=== PATIENT | female | born 1995 | race American Indian/Alaskan Native ===

== ENCOUNTER 2020-06-20 10:37 | Day surgery (SDC) | payer SELFPAY ==
--- NOTE | 2020-06-20 10:50 | Event Note ---
ED Screening Note ED Screening Note: 25-year-old F [place] female reports emergency department complaining of being 1 month ago however reports that her doctor was unable to find the baby since that time she is been having bleeding off and on which has increased over the last few days become more painful with cramping to the suprapubic area. No dysuria or vaginal discharge reported no fevers chills or sweats no palpitations no chest pain or shortness of breath no pelvic trauma reported. This initial assessment/diagnostic orders/clinical plan/treatment(s) is/are subject to change based on patients health status, clinical progression and re- assessment by fellow clinical providers in the ED. Further treatment and workup at subsequent clinical providers discretion. Patient/guardian urged not to elope from the ED as their condition may be serious if not clinically assessed and managed. Initial orders include: We will obtain a CBC and hCG quant and a urinalysis. Will evaluate for possible ultrasound, vital signs still pending
[2020-06-20 13:04] LABS: Basophils % (Auto) 0.4 % (0.0-1.8); Eosinophils % (Auto) 0.2 % (0.0-4.3); Hematocrit 39.1 % (30.3-42.9); Hemoglobin 12.9 gm/dl (10.1-14.3); Mean Corpuscular HGB Conc 33 % (30-34); Mean Corpuscular Volume 86 fl (79-97); Monocytes # (Auto) 0.4 K/mm3 (0.0-0.8); Monocytes % (Auto) 5.3 % (0.0-7.3); Platelet Count 184 K/mm3 (140-440); Red Blood Count 4.53 M/mm3 (3.65-5.03); Red Cell Distribution Width 12.8 % (13.2-15.2)
[2020-06-20 13:30] LABS: Alanine Aminotransferase 10 units/L (7-56); Albumin 4.5 g/dL (3.9-5); Blood Urea Nitrogen 12 mg/dL (7-17); Calcium 9.7 mg/dL (8.4-10.2); Hemolysis Index 18
[2020-06-20 13:31] LABS: BUN/Creatinine Ratio 20
--- NOTE | 2020-06-20 13:41 | Emergency Department Report ---
ED Female HPI - General Chief complaint: Abdominal Pain Stated complaint: LOW ABDOMINAL PAIN Time Seen by Provider: 06/20/20 13:18 Source: patient Mode of arrival: Ambulatory Limitations: No Limitations - History of Present Illness Initial comments: 25-year-old F Taiwanese female reports emergency department complaining of being 1 month ago however reports that her doctor was unable to find the baby since that time she is been having bleeding off and on which has increased over the last few days become more painful with cramping to the suprapubic area. No dysuria or vaginal discharge reported no fevers chills or sweats no palpitations no chest pain or shortness of breath no pelvic trauma reported. Patient is 1 para 0 with the last known period was May 05-. She states that she started bleeding on 05/15/2020 that is when she did a test [id number] with urine tested positive. Patient then reports she started bleeding on 06/04/2020 and has been bleeding intermittently since 2 days ago was to bleeding has kind of stopped. Patient reports that she has had an ultrasound done on 05 19 which showed positive test but no visualization of . She states that was done at [facility]. She states she had a repeat June 16 with the same results of no visualization signs of intrauterine gestation. Onset/Timin -: month(s) Location: suprapubic Severity scale (0 -10): 6 Quality: cramping Consistency: intermittent Improves with: none Worsens with: none Are you Now?: Yes Last Menstrual Period: 05/05/20 EDC: 02/09/21 Associated Symptoms: vaginal bleeding. denies: nausea/vomiting, fever/chills - Related Data Sexually active: Yes : 0 Previous Rx's Medication Instructions Recorded Last Taken Type Ibuprofen [Motrin 800 MG tab] 800 mg PO TID PRN #30 tablet 06/20/20 Unknown Rx oxyCODONE /ACETAMINOPHEN [Percocet 1 - 2 tab PO Q6HR PRN #10 tablet 06/20/20 Unknown Rx 5/325 mg] Allergies Allergy/AdvReac Type Severity Reaction Status Date / Time No Known Allergies Allergy Unverified 06/20/20 10:51 ED Review of Systems ROS: Stated complaint: LOW ABDOMINAL PAIN Other details as noted in HPI Comment: All other systems reviewed and negative ED Past Medical Hx - Past Medical History Previous Medical History?: No - Surgical History Past Surgical History?: No - Social History Smoking Status: Never Smoker Substance Use Type: Alcohol - Medications Home Medications: Home Medications Medication Instructions Recorded Confirmed Last Taken Type Ibuprofen [Motrin 800 MG tab] 800 mg PO TID PRN #30 tablet 06/20/20 Unknown Rx oxyCODONE /ACETAMINOPHEN [Percocet 1 - 2 tab PO Q6HR PRN #10 tablet 06/20/20 Unknown Rx 5/325 mg] ED Physical Exam - General Limitations: No Limitations General appearance: alert, in no apparent distress - Head Head exam: Present: atraumatic, normocephalic - Eye Eye exam: Present: normal appearance - ENT ENT exam: Present: mucous membranes moist - Neck Neck exam: Present: normal inspection, full ROM - Respiratory Respiratory exam: Present: normal lung sounds bilaterally. Absent: respiratory distress - Cardiovascular Cardiovascular Exam: Present: regular rate, normal rhythm. Absent: systolic murmur, diastolic murmur, rubs, gallop - GI/Abdominal GI/Abdominal exam: Present: soft, tenderness, normal bowel sounds. Absent: distended - Extremities Exam Extremities exam: Present: normal inspection, full ROM - Back Exam Back exam: Present: normal inspection, full ROM - Neurological Exam Neurological exam: Present: alert, oriented X3 - Psychiatric Psychiatric exam: Present: normal affect, normal mood - Skin Skin exam: Present: warm, dry, intact, normal color. Absent: rash ED Course Vital Signs 06/20/20 06/20/20 06/20/20 10:47 19:15 23:27 Temperature 98.9 F 98.1 F 97.1 F L Pulse Rate 83 96 H 100 H Respiratory 17 18 18 Rate Blood Pressure 111/65 153/91 Blood Pressure 113/69 [Left] O2 Sat by Pulse 99 98 100 Oximetry 06/20/20 06/20/20 06/20/20 23:30 23:35 23:40 Temperature Pulse Rate 97 H 83 82 Respiratory 19 14 17 Rate Blood Pressure 153/91 141/72 138/87 Blood Pressure [Left] O2 Sat by Pulse 100 100 100 Oximetry 06/20/20 06/21/20 06/21/20 23:45 00:00 00:15 Temperature Pulse Rate 78 89 83 Respiratory 16 11 L 11 L Rate Blood Pressure 131/81 130/65 124/68 Blood Pressure [Left] O2 Sat by Pulse 100 97 99 Oximetry 06/21/20 06/21/20 06/21/20 00:21 00:30 00:45 Temperature Pulse Rate 85 92 H Respiratory 14 13 11 L Rate Blood Pressure 124/67 114/59 Blood Pressure [Left] O2 Sat by Pulse 95 98 Oximetry 06/21/20 00:55 Temperature 99 F Pulse Rate 90 Respiratory 11 L Rate Blood Pressure 128/66 Blood Pressure [Left] O2 Sat by Pulse 97 Oximetry ED Medical Decision Making - Lab Data Result diagrams: 06/20/20 12:00 06/20/20 12:00 - Medical Decision Making 25-year-old F Taiwanese female reports emergency department complaining of being 1 month ago however reports that her doctor was unable to find the baby since that time she is been having bleeding off and on which has increased over the last few days become more painful with cramping to the suprapubic area. No dysuria or vaginal discharge reported no fevers chills or sweats no palpitations no chest pain or shortness of breath no pelvic trauma reported. Patient is 1 para 0 with the last known period was May 05-. She states that she started bleeding on 05/15/2020 that is when she did a test [id number] with urine tested positive. Patient then reports she started bleeding on 06/04/2020 and has been bleeding intermittently since 2 days ago was to bleeding has kind of stopped. Patient reports that she has had an ultrasound done on 05 19 which showed positive test but no visualization of . She states that was done at [facility]. She states she had a repeat June 16 with the same results of no visualization signs of intrauterine gestation. protocol has been ordered ultrasound with gestation has been ordered. This time was noted to not able to visualize the intrauterine gestational sac. hCG was ordered and showed that it was greater than 6000. Dr. Singh BILINGUAL CASE MANAGER court collections officer came to evaluate patient discussed the possibilities of having topic symptoms were not able to visualize the in the uterus but are able to see blood on the ultrasound. At that time patient agreed to be admitted to the hospital for exploratory lap with Dr. Singh. IV was placed. Consent signed at the bedside. Critical care attestation.: If time is entered above; I have spent that time in minutes in the direct care of this critically ill patient, excluding procedure time. ED Disposition Clinical Impression: Right tubal without intrauterine , Pelvic pain Disposition: DC-01 TO HOME OR SELFCARE Is pt being admited?: No Does the pt Need Aspirin: No Condition: Good
[2020-06-20 14:35] LABS: Bilirubin,Urine NEG (Negative); Blood,Urine NEG (Negative); Color,Urine Yellow (Yellow); Mucus,Urine 2+ /HPF; Protein,Urine <15 mg/dL mg/dL (Negative); Urobilinogen,Urine < 2.0 mg/dL (<2.0)
--- NOTE | 2020-06-20 16:30 | Ultrasound Report ---
ULTRASOUND OBSTETRIC INDICATION: Intermittent vaginal bleeding with cramping. Estimate clinical age of 6 weeks. TECHNIQUE: Transabdominal. COMPARISON: None available. FINDINGS: GESTATIONAL SAC: Not seen. YOLK SAC: Not seen. EMBRYO/FETUS: Not seen. UTERUS: No significant abnormality. ADNEXA: No significant abnormality. FREE FLUID: None. ADDITIONAL FINDINGS: None. IMPRESSION: No sonographic evidence of intrauterine or acute abnormality of the pelvis. Please correlat e with the clinical findings. Signer Name: Hunter Alcocer MD Signed: 06/20/2020 4:26 PM Workstation Name: [id number]
--- NOTE | 2020-06-20 19:36 | History and Physical Report ---
History of Present Illness Date of examination: 06/20/20 Chief complaint: Pelvic pain and irregular vaginal bleeding with positive test History of present illness: This is a 25-year-old female 1 who presents to the emergency department with acute onset of severe pelvic pain that started today with persistent irregular vaginal bleeding. Patient states she had a normal LMP that started 05/05/2020 through 05/09/2020. She then had spotting with intermittent bleeding that started on 05/15/2020. She took a test that was positive and presented to [facility] for evaluation. Positive test was confirmed and she had an ultrasound that did not show an intrauterine . Throughout the month of May she continued to have intermittent vaginal bleeding. She states that she had increased vaginal bleeding June 04 that lasted approximately 4 to 5 days. She again presented to [facility] June 16, 2020 and again had an ultrasound that did not confirm intrauterine . She states during the meeting today she started having severe pelvic pain and presented to the ED for evaluation. Past History Past Medical History: No medical history Past Surgical History: No surgical history Social history: no significant social history Medications and Allergies Allergies Allergy/AdvReac Type Severity Reaction Status Date / Time No Known Allergies Allergy Unverified 06/20/20 10:51 Active Meds: Active Medications Cefazolin Sodium (Ancef/Sterile Water 2 Gm/20 Ml) 2 gm in 20 mls @ 80 mls/hr IV PREOP NR; Protocol Stop: 06/21/20 04:00 Review of Systems All systems: negative - Gastrointestinal abdominal pain - Genitourinary Genitourinary: pelvic pain, abnormal vaginal bleeding Exam Vital Signs Temp Pulse Resp BP Pulse Ox 98.9 F 83 17 111/65 99 06/20/20 10:47 06/20/20 10:47 06/20/20 10:47 06/20/20 10:47 06/20/20 10:47 - General physical appearance Positive: well developed, well nourished, moderate pain - Respiratory Positive: normal expansion, normal respiratory effort - Extremities Extremities: no ischemia, No edema - Abdomen Abdomen: Present: soft, distended, rebound, guarding - Genitourinary Female Genitourinary: other (No blood in the vagina. Pelvic is difficult to assess due to tenderness.) - Neurologic Neurologic: alert and oriented to time, place and person, CN II-XII intact - Psychiatric Psychiatric: appropriate mood/affect, intact judgment & insight, memory intact, cooperative Results - Labs 06/20/20 12:00 06/20/20 12:00 Abnormal lab results 06/20/20 06/20/20 Range/Units 12:00 12:00 RDW 12.8 L (13.2-15.2) % Lymph % (Auto) 13.0 L (13.4-35.0) % Lymph # (Auto) 1.0 L (1.2-5.4) K/mm3 Seg Neutrophils % 81.1 H (40.0-70.0) % HCG, Quant 6495 H (0-4) mIU/mL Diabetes panel 06/20/20 Range/Units 12:00 Sodium 141 (137-145) mmol/L Potassium 4.5 (3.6-5.0) mmol/L Chloride 101.6 (98-107) mmol/L Carbon Dioxide 23 (22-30) mmol/L BUN 12 (7-17) mg/dL Creatinine 0.6 (0.6-1.2) mg/dL Glucose 90 (65-100) mg/dL Calcium 9.7 (8.4-10.2) mg/dL AST 17 (5-40) units/L ALT 10 (7-56) units/L Alkaline Phosphatase 56 (35-129) units/L Total Protein 7.5 (6.3-8.2) g/dL Albumin 4.5 (3.9-5) g/dL Calcium panel 06/20/20 Range/Units 12:00 Calcium 9.7 (8.4-10.2) mg/dL Albumin 4.5 (3.9-5) g/dL Pituitary panel 06/20/20 Range/Units 12:00 Sodium 141 (137-145) mmol/L Potassium 4.5 (3.6-5.0) mmol/L Chloride 101.6 (98-107) mmol/L Carbon Dioxide 23 (22-30) mmol/L BUN 12 (7-17) mg/dL Creatinine 0.6 (0.6-1.2) mg/dL Glucose 90 (65-100) mg/dL Calcium 9.7 (8.4-10.2) mg/dL Adrenal panel 06/20/20 Range/Units 12:00 Sodium 141 (137-145) mmol/L Potassium 4.5 (3.6-5.0) mmol/L Chloride 101.6 (98-107) mmol/L Carbon Dioxide 23 (22-30) mmol/L BUN 12 (7-17) mg/dL Creatinine 0.6 (0.6-1.2) mg/dL Glucose 90 (65-100) mg/dL Calcium 9.7 (8.4-10.2) mg/dL Total Bilirubin 0.50 (0.1-1.2) mg/dL AST 17 (5-40) units/L ALT 10 (7-56) units/L Alkaline Phosphatase 56 (35-129) units/L Total Protein 7.5 (6.3-8.2) g/dL Albumin 4.5 (3.9-5) g/dL - Imaging US - pelvic: report reviewed, image reviewed Assessment and Plan - Patient Problems (1) Pelvic pain Current Visit: Yes Status: Acute Plan to address problem: Clinical evaluation and ultrasound findings appear to be consistent with a ruptured ectopic . Diagnosis discussed with patient and her mother (her mother was on the cell phone during the conversation). Options were reviewed including observation versus diagnostic laparoscopy with possible suc tion dilation and curettage. She was informed she may require removal of one fallopian tube. Also discussed the risk of bleeding, infection, injury to her bowel, bladder or major vascular injury that may require blood transfusion. She was also informed should she elect for observation she will be admitted and observed overnight in the hospital. However with these findings I have a high suspicion for blood in her abdomen due to an ectopic . Options for management of an ectopic were discussed, she was informed that due to possible blood in her abdomen she is not a candidate for medical therapy. The consent was reviewed, patient actually read out loud the intended procedures written on the consent. Questions were encouraged and answered. She voiced understanding and desire to proceed. Consents were signed and witnessed.
--- NOTE | 2020-06-20 19:54 | History and Physical Report ---
History of Present Illness Date of examination: 06/20/20 Medications and Allergies Allergies Allergy/AdvReac Type Severity Reaction Status Date / Time No Known Allergies Allergy Unverified 06/20/20 10:51 Active Meds: Active Medications Cefazolin Sodium (Ancef/Sterile Water 2 Gm/20 Ml) 2 gm in 20 mls @ 80 mls/hr IV PREOP NR; Protocol Exam Vital Signs Temp Pulse Resp BP Pulse Ox 98.9 F 83 17 111/65 99 06/20/20 10:47 06/20/20 10:47 06/20/20 10:47 06/20/20 10:47 06/20/20 10:47 Results - Labs 06/20/20 12:00 06/20/20 12:00 Abnormal lab results 06/20/20 06/20/20 Range/Units 12:00 12:00 RDW 12.8 L (13.2-15.2) % Lymph % (Auto) 13.0 L (13.4-35.0) % Lymph # (Auto) 1.0 L (1.2-5.4) K/mm3 Seg Neutrophils % 81.1 H (40.0-70.0) % HCG, Quant 6495 H (0-4) mIU/mL Diabetes panel 06/20/20 Range/Units 12:00 Sodium 141 (137-145) mmol/L Potassium 4.5 (3.6-5.0) mmol/L Chloride 101.6 (98-107) mmol/L Carbon Dioxide 23 (22-30) mmol/L BUN 12 (7-17) mg/dL Creatinine 0.6 (0.6-1.2) mg/dL Glucose 90 (65-100) mg/dL Calcium 9.7 (8.4-10.2) mg/dL AST 17 (5-40) units/L ALT 10 (7-56) units/L Alkaline Phosphatase 56 (35-129) units/L Total Protein 7.5 (6.3-8.2) g/dL Albumin 4.5 (3.9-5) g/dL Calcium panel 06/20/20 Range/Units 12:00 Calcium 9.7 (8.4-10.2) mg/dL Albumin 4.5 (3.9-5) g/dL Pituitary panel 06/20/20 Range/Units 12:00 Sodium 141 (137-145) mmol/L Potassium 4.5 (3.6-5.0) mmol/L Chloride 101.6 (98-107) mmol/L Carbon Dioxide 23 (22-30) mmol/L BUN 12 (7-17) mg/dL Creatinine 0.6 (0.6-1.2) mg/dL Glucose 90 (65-100) mg/dL Calcium 9.7 (8.4-10.2) mg/dL Adrenal panel 06/20/20 Range/Units 12:00 Sodium 141 (137-145) mmol/L Potassium 4.5 (3.6-5.0) mmol/L Chloride 101.6 (98-107) mmol/L Carbon Dioxide 23 (22-30) mmol/L BUN 12 (7-17) mg/dL Creatinine 0.6 (0.6-1.2) mg/dL Glucose 90 (65-100) mg/dL Calcium 9.7 (8.4-10.2) mg/dL Total Bilirubin 0.50 (0.1-1.2) mg/dL AST 17 (5-40) units/L ALT 10 (7-56) units/L Alkaline Phosphatase 56 (35-129) units/L Total Protein 7.5 (6.3-8.2) g/dL Albumin 4.5 (3.9-5) g/dL
[2020-06-20] MEDS ORDERED: ceFAZolin/Water 2 GM/20 ML 2 GM/20 ML SYRINGE IV NR (20:00)
--- NOTE | 2020-06-20 20:51 | Anesthesia Consultation ---
Anesthesia Consult and Med Hx Date of service: 06/20/20 - Airway Anesthetic Teeth Evaluation: Good ROM Head & Neck: Adequate Mental/Hyoid Distance: Adequate Mallampati Class: Class II Intubation Access Assessment: Probably Good - Pre-Operative Health Status ASA Pre-Surgery Classification: ASA1, Emergency Proposed Anesthetic Plan: General - Pulmonary Hx Smoking: No Hx Asthma: No Hx Respiratory Symptoms: No SOB: No COPD: No Home Oxygen Therapy: No Hx Pneumonia: No Hx Sleep Apnea: Yes - Cardiovascular System Hx Hypertension: No Hx Coronary Artery Disease: No Hx Heart Attack/AMI: No Hx Angina: No Hx Percutaneous Transluminal Coronary Angioplasty (PTCA): No Hx Cardia Arrhythmia: No Hx Pacemaker: No Hx Internal Defibrillator: No Hx Valvular Heart Disease: No Hx Heart Murmur: No Hx Peripheral Vascular Disease: No - Central Nervous System Hx Neuromuscular Disorder: No Hx Seizures: No CVA: No Hx Back Pain: No Hx Psychiatric Problems: No - Gastrointestinal Hx Ulcer: No Hx Gastroesophageal Reflux Disease: Yes - Endocrine Hx Renal Disease: No Hx End Stage Renal Disease: No Hx Cirrhosis: No Hx Liver Disease: No Hx Insulin Dependent Diabetes: No Hx Non-Insulin Dependent Diabetes: No Hx Thyroid Disease: No Hx Hypothyroidism: No Hx Hyperthyroidism: No - Hematic Hx Anemia: No Hx Sickle Cell Disease: No - Other Systems Hx Alcohol Use: Yes (occ.) Hx Substance Use: No Hx Cancer: No Hx Obesity: No
--- NOTE | 2020-06-20 20:54 | Anesthesia Day of Surgery ---
Anesthesia Day of Surgery - Day of Surgery Patient Examined: Yes Patient H&P Reviewed: Yes Patient is NPO: No
[2020-06-20] MEDS ORDERED: BUPIVACAINE/PF (0.5%) 5 MG/1 ML 30 ML VIAL INFILTRATI ONE ×2 (21:07→22:30)
[2020-06-20] MEDS ORDERED: SUCCINYLCHOLINE CHLORIDE 200 MG/10 ML INJ MDV ONE (21:17)
[2020-06-20] MEDS ORDERED: GLYCOPYRROLATE 0.4 MG/2 ML INJ ONE (21:17)
[2020-06-20] MEDS ORDERED: PHENYLEPHRINE/NS 1,000 MCG/10 ML SYRINGE (OR USE) IV ONE (21:17)
[2020-06-20] MEDS ORDERED: dexAMETHasone 20 MG/5 ML VIAL ONE (21:17)
[2020-06-20] MEDS ORDERED: ONDANSETRON 4 MG/2 ML INJ ONE (21:17)
[2020-06-20] MEDS ORDERED: ROCURONIUM 50 MG/5 ML INJ IV ONE (21:17)
[2020-06-20] MEDS ORDERED: NEOSTIGMINE 10MG/10 ML INJ MDV ONE (21:17)
[2020-06-20] MEDS ORDERED: LIDOCAINE MPF (2%) 20 MG/1 ML VIAL 5 ML ONE (21:17)
[2020-06-20] MEDS ORDERED: propofoL 200 MG/20 ML VIAL IV ONE (21:18)
[2020-06-20] MEDS ORDERED: fentaNYL 100 MCG/2 ML INJ ONE ×2 (21:18→22:26)
[2020-06-20] MEDS ORDERED: MIDAZOLAM 2 MG/2 ML INJ ONE (21:19)
[2020-06-20] MEDS ORDERED: HYDROmorphone 1 MG/1 ML INJ ONE (21:24)
[2020-06-20] MEDS ORDERED: SODIUM CHLORIDE 0.9% IRRIG SOLN 2000 ML IR ONE (22:31)
[2020-06-20] MEDS ORDERED: SUGAMMADEX SODIUM 200 MG/2 ML VIAL IV ONE (23:00)
[2020-06-20] MEDS ORDERED: HYDROmorphone 1 MG/1 ML INJ IV PRN ×2 (23:37)
[2020-06-20] MEDS ORDERED: ONDANSETRON 4 MG/2 ML INJ IV PRN (23:37)
[2020-06-20] MEDS ORDERED: MEPERIDINE 25 MG/1 ML INJ IV PRN (23:40)
--- NOTE | 2020-06-20 23:58 | Operative Report ---
Operative Report Operative Report: Date of operation: 06/20/2020 Pre-operative diagnosis: 1. Ectopic Post-operative diagnosis: 1. Right tubal Procedure name(s): 1. Laparoscopic right salpingectomy Surgeon: Kalyn Singh MD Roller Inspector And Mender: [] Anesthesia: General endotracheal anesthesia Anesthesiologist: [] EBL: 400 mL [approximately 300ml of clots and blood noted in her abdomen and pelvis] Urine output: 150 mL of clear yellow urine Findings: Grossly normal uterus left tube and ovaries, ~4cm right tubal Procedure: After risks, benefits, complications, consequences and alternatives for this procedure were discussed with patient and she voiced understanding desire to proceed, the patient was taken to the operating suite and placed in the supine position. General anesthesia was induced. She placed in dorsolithotomy position. Exam under anesthesia was unremarkable. She was then prepped and draped in the usual sterile fashion. Timeout was performed. A Pringle catheter was introduced into the bladder with drainage of clear yellow urine. An operative speculum was introduced into the vagina, and the anterior lip of the cervix was grasped with a single-tooth tenaculum. The uterus was sounded to 7 cm. The cervix was progressively dilated to allow the HUMI uterine manipulator to be placed without difficulty and the balloon was inflated. The speculum and clamp were removed. Sterile gloves were placed and attention was turned to the abdomen. An supraumbilical incision was made and a 5 mm bladeless Optiview trocar was placed with laparoscope and camera inserted. No obvious bowel, bladder, ureteral or major vascular injury was noted. The abdomen was insufflated. She was then placed in Trendelenburg position. Large clots were noted in the pelvis. Then an incision was made approximately 2 cm superior to the symphysis pubis in the midline. An 12 mm bladeless trocar was introduced under the direct visualization. An additional 8 mm trocar was placed in the right lower lateral midclavicular region of the abdomen through an incision under direct visualization. Again no obvious bowel, bladder, ureteral or major vascular injury was noted. Due to the size of the tubal and the amount of blood loss that was already present in her abdomen and pelvis, the decision was made to proceed with salpingectomy. The uterus was elevated and using the 5 mm [place] LigaSure, salpingectomy was performed. The Endo Catch was placed through the 12 mm trocar and the specimen was removed and sent to pathology as permanent. The pelvis was then copiously irrigated with warm normal saline. Attention was turned to the right adnexa where hemostasis was noted. Again the abdomen and pelvis was inspected and no bowel, bladder, ureteral, or major vascular injury was noted. The carbon dioxide was released from the abdomen under direct visualization to ensure hemostasis. Once hemostasis was assured the procedure was ended. The 12 mm trocar was removed and the fascia was reapproximated using the Rick Quiroz fascial closure device with 0 Vicryl. The 8 mm trocar was removed and hemostasis was noted. Then the 5 mm trocar was removed and the carbon dioxide was released. The incisions were infused with half percent Marcaine without epinephrine. The incisions were reapproximated using 4-0 Monocryl in a subcuticular manner. Hemostasis was noted. Attention was turned to the vagina where the HUMI uterine manipulator was removed. Hemostasis was noted. Counts were correct x3 Patient was taken to recovery room in stable condition.
--- NOTE | 2020-06-21 00:06 | Post Anesthesia Evaluation ---
- Post Anesthesia Evaluation Patient Participated: Yes Airway Patent: Yes Stable Respiratory Function: Yes Nausea/Vomiting: No Temp > 96.8F: Yes Pain Manageable: Yes Adequeate Hydration: Yes Anesthesia Complications: No Block Receding Appropriately: Not Applicable Patient on Ventilator: No
--- NOTE | 2020-06-21 00:12 | Discharge Summary ---
Providers - Providers Date of discharge: 06/21/20 Attending physician: RANDOLPH PEDROZA Primary care physician: PHOTOGRAPH RETOUCHER Hospitalization Condition: Good Procedures: Laparoscopic right salpingectomy Hospital course: See history and physical. Patient underwent laparoscopic right salpingectomy without any complications. Her postoperative course was unremarkable she was stable in recovery room the decision was made to allow discharge home. Disposition: DC-01 TO HOME OR SELFCARE - Discharge Diagnoses (1) Right tubal without intrauterine Status: Acute Core Measure Documentation - Palliative Care Palliative Care/ Comfort Measures: Not Applicable - Core Measures Any of the following diagnoses?: none Exam - Constitutional Vitals: Temp Pulse Resp BP Pulse Ox 98.1 F 96 H 18 113/69 98 06/20/20 19:15 06/20/20 19:15 06/20/20 19:15 06/20/20 19:15 06/20/20 19:15 General appearance: Present: no acute distress - Respiratory Respiratory effort: normal - Cardiovascular Rhythm: regular - Extremities Extremities: no ischemia, No edema - Integumentary Integumentary: Present: clear, warm, dry - Psychiatric Psychiatric: appropriate mood/affect, intact judgment & insight, memory intact, cooperative Plan Activity: other (No sex. No driving. Ambulate approximately 1 mile on your property a day.) Weight Bearing Status: Full Weight Bearing Diet: regular (Eat small meals frequently. Drink 64 ounces of water a day.) Wound: open to air, keep clean and dry Special Instructions: no heavy lifting (Greater than 25 pound) Follow up with: GLADYS GOLDEN MD [Primary Care Provider] - 7 Days RANDOLPH PEDROZA MD [Staff Physician] - 7 Days Prescriptions: Ibuprofen [Motrin 800 MG tab] 800 mg PO TID PRN #30 tablet PRN Reason: Pain oxyCODONE /ACETAMINOPHEN [Percocet 5/325 mg] 1 - 2 tab PO Q6HR PRN #10 tablet PRN Reason: Pain
[2020-06-21] MEDS ORDERED: HYDROmorphone 1 MG/1 ML INJ ONE (00:21)
[2020-06-21 00:57] VITALS: BP 128/66
== END 2020-06-21 01:47 | disposition home or self-care (01) ==
LOC: ED 10:37 → OR 21:50
PROVIDERS: ATTEND Obstetrics & Gynecology
DX: O00.101 Right tubal pregnancy without intrauterine pregnancy (principal); G47.30 Sleep apnea, unspecified; K21.9 Gastro-esophageal reflux disease without esophagitis; Z79.899 Other long term (current) drug therapy; Z72.89 Other problems related to lifestyle
CPT/HCPCS: 36415; 59151; 76801; 80053; 81001; 84702; 84703; 85025; 86850; 86900; 86901; 88305; A4217; J0330; J1100; J1170; J2175; J2250; J2370; J2405; J2704; J2710; J3010